=== PATIENT | female | born 1990 | race Caucasian/White ===

== ENCOUNTER 2016-07-20 21:13 | Emergency (ER) | payer OTHER ==
[2016-07-20 21:26] VITALS: RESP 18; TEMP 98.6; O2SAT 99
[2016-07-20 22:30] VITALS: BP 128/74; PULSE 88
== END 2016-07-20 22:28 | disposition home or self-care (01) ==
LOC: ED 21:13
DX: O20.9 Hemorrhage in early pregnancy, unspecified (principal); Z3A.08 8 weeks gestation of pregnancy
CPT/HCPCS: 36415; 99282; 99284

== ENCOUNTER 2016-09-14 15:40 | Emergency (ER) | payer MEDICAID, OTHER ==
[2016-09-14 15:54] VITALS: RESP 20
[2016-09-14 16:14] LABS: BASOPHILS % (AUTO) 0 % (0-3); EOSINOPHILS % (AUTO) 1 % (0-9); HEMATOCRIT 33 % (35-47); MEAN CORPUSCULAR HGB CONC 35.6 gm/dl (32.0-36.0); MEAN CORPUSCULAR VOLUME 83 fL (81-99); MONOCYTES % (AUTO) 5.2 % (0-12); NEUTROPHILS % (AUTO) 74.5 % (37-80)
[2016-09-14 16:33] LABS: ALBUMIN 3.2 gm/dl (3.4-5.0); ALT 24 IU/L (14-63); CALCIUM 8.9 mg/dl (8.5-10.1); GLOM FILT RATE 125 mL/min (>60); MAGNESIUM 1.8 mg/dl (1.8-2.4); POTASSIUM 3.4 mMol/L (3.5-5.1); SODIUM 138 mMol/L (136-145); THYROID STIMULATING HORMONE 1.884 uIU/ml (0.358-3.740)
[2016-09-14] MEDS ORDERED: POTASSIUM CHLORIDE 10 MEQ TER ONE (16:39)
[2016-09-14] MEDS ORDERED: POTASSIUM CHLORIDE 10 MEQ TER PO ONE (16:39)
[2016-09-14 17:05] VITALS: TEMP 98
[2016-09-14 17:06] VITALS: BP 138/58; PULSE 75; O2SAT 99
== END 2016-09-14 16:55 | disposition home or self-care (01) | DRG 781 ==
LOC: ED 15:40
DX: O99.412 Diseases of the circulatory system complicating pregnancy, second trimester (principal); R00.2 Palpitations; Z3A.17 17 weeks gestation of pregnancy
CPT/HCPCS: 36415; 80053; 83735; 84100; 84443; 84484; 85025; 93005; 99283

== ENCOUNTER 2016-11-28 18:40 | Emergency (ER) | payer MEDICAID, OTHER ==
[2016-11-28 18:56] VITALS: BP 163/73; PULSE 92; RESP 20; TEMP 96.6; O2SAT 100
== END 2016-11-28 19:32 | disposition home or self-care (01) ==
LOC: ED 18:40
DX: O60.02 Preterm labor without delivery, second trimester (principal); Z3A.27 27 weeks gestation of pregnancy; Z87.51 Personal history of pre-term labor
CPT/HCPCS: 59025; 99282; 99283